=== PATIENT | female | born 1990 | race Caucasian/White ===

== ENCOUNTER 2021-01-06 17:18 | Emergency (ER) | payer MEDICAID ==
[~2021-01-06] VITALS: Ht 160 cm; Wt 100.0 kg
--- NOTE | 2021-01-06 18:04 | PHYS DOC ---
Past History Past Surgical History: No Surgical History, Appendectomy, Cholecystectomy (YVONNE RENAE APRN) Alcohol Use: None (YVONNE RENAE APRN) General Adult EDM: Chief Complaint: CONSTIPATION HPI: HPI: Patient is a 30-year-old female being seen for constipation. Patient reports her last bowel movement was 2 weeks ago. She is reporting left upper quadrant and left lower quadrant pain with abdominal distention. She rates this pain 10 out of 10. She has been taking MiraLAX, mag citrate, enemas for the last 4 days without previously a bowel movement. Patient is also reporting nausea and vomi ting. Patient reports that she went to a hospital in [place] yesterday for the same symptoms and was given Relistor, GlycoLax and senna she reports still not being able to have a bowel movement. Patient denies fevers, dysuria, frequency/urgency, blood in vomit. (YVONNE RENAE APRN) Review of Systems: Review of Systems: 14 body systems of the review of systems have been reviewed. See HPI for pertinent positive and negative responses, otherwise all other systems are negative, nonpertinent or noncontributory (YVONNE RENAE APRN) Allergies: Allergies: Allergies Coded Allergies Type Severity Reaction Last Updated Verified No Known Drug Allergies 01/06/21 No (YVONNE RENAE APRN) Physical Exam: PE: Constitutional: Well developed, well nourished, no acute distress, non-toxic appearance. [] HENT: Normocephalic, atraumatic Eyes: PERRL, conjunctiva normal, no discharge. [] Neck: Normal range of motion, no tenderness, supple, no stridor. [] Cardiovascular:Heart rate regular rhythm, no murmur [] Lungs & Thorax: Bilateral breath sounds clear to auscultation [] Abdomen: Bowel sounds normal, firm, distended, tenderness with palpation to left lower quadrant, no rebound tenderness, negative Rovsing sign, no masses, no pulsatile masses. [] Skin: Warm, dry, no erythema, no rash. [] Back: Normal range of motion Extremities: No tenderness, no cyanosis, no clubbing, ROM intact, no edema. [] Neurologic: Alert and oriented X 3, normal motor function, normal sensory function, no focal deficits noted. [] Psychologic: Affect normal, judgement normal, mood normal. [] (YVONNE RENAE APRN) Current Patient Data: Vital Signs: Vital Signs Date Time Temp Pulse Resp B/P (MAP) Pulse Ox O2 Delivery O2 Flow Rate FiO2 01/06/21 17:44 98.7 85 18 114/91 97 (YVONNE RENAE APRN) EKG: EKG: [] (YVONNE RENAE APRN) Radiology/Procedures: Radiology/Procedures: PROCEDURE: CT ABD PELV W/ IV CONTRST ONLY CT abdomen and pelvis with contrast PQRS statement: CT scans at this facility use dose reduction including either automated exposure control, iterative reconstructions, and /or weight based radiation dosing via mA and kV modification when appropriate to reduce radiation dose to as low as reasonably achievable. Contrast: 75 mL Omnipaque 300 intravenous contrast HISTORY: Abdominal pain, abdominal bloating, obstruction, constipation. Abdomen findings: Mild discoid atelectasis at the lung bases. Subcentimeter hypodense lesions of the liver too small to characterize, statistically most likely these are 2 small cysts or hemangiomas. Cholecystectomy. Pancreas, spleen, small accessory spleen, adrenal glands and kidneys are unremarkable. Appendectomy. No obstruction or inflammatory changes in GI tract. No abdominal fluid or adenopathy. Pelvis findings: Bladder, uterus, ovaries, rectum and bones are unremarkable. No pelvic fluid or adenopathy. IMPRESSION: No acute process. Appendectomy. There is a moderate volume of stool within the descending and rectosigmoid colon may indicate mild constipation. Electronically signed by: Alvarez Collins MD (01/06/2021 6:56 PM) [facility] [place] DICTATED AND SIGNED BY: ALVAREZ COLLINS MD DATE: 01/06/211850 CC: YVONNE RENAE APRN; PCP,NO ~MTH0 0[] (YVONNE RENAE APRN) Heart Score: C/O Chest Pain: No Risk Factors: Risk Factors: DM, Current or recent (<one month) smoker, HTN, HLP, family history of CAD, obesity. Risk Scores: Score 0 - 3: 2.5% MACE over next 6 weeks - Discharge Home Score 4 - 6: 20.3% MACE over next 6 weeks - Admit for Clinical Observation Score 7 - 10: 72.7% MACE over next 6 weeks - Early Invasive Strategies (YVONNE REANE APRN) Course & Med Decision Making: Course & Med Decision Making Pertinent Labs and Imaging studies reviewed. (See chart for details) Patient is a 30-year-old female being seen for constipation, abdominal pain, nausea/vomiting, abdominal distention. A CT scan was performed in the ER that showed mild constipation with no obstruction. Lab work unremarkable. Fleets enema ordered. Patient reports that she has a long drive home and would like to do the enema at home. I discussed with patient all findings and diagnostic testing as well as the need to follow-up with PCP for further evaluation and treatment or return to the ER if any new or worsening symptoms. Strict return precautions were also discussed at length. Patient voiced understanding and agreement with the plan. Patient is hemodynamically stable at the time of disposition. (YVONNE RENAE APRN) Course & Med Decision Making Did not see or evaluate patient. Agree with PAID SEARCH ANALYST's work-up and disposition per note. (OMAIRA ARSHAD MD) Dragon Disclaimer: Dragon Disclaimer: This electronic medical record was generated, in whole or in part, using a voice recognition dictation system. (YVONNE RENAE APRN) Departure Departure: Impression: Primary Impression: Constipation Qualified Codes: K59.00 - Constipation, unspecified Disposition: HOME / SELF CARE / HOMELESS Condition: GOOD Referrals: PCP,NO (PCP) Patient Instructions: Constipation, Adult Additional Instructions: You were seen in the ER today for constipation. Your blood work was unremarkable. Your CT scan showed mild constipation with no obstruction. As you requested, you were given a fleets enema to take home. Please use this as directed. Please take the medications that you were previously prescribed yes terday. Follow-up with your primary care provider tomorrow regarding your ER visit today. If you continue to have your symptoms you may need to have a GI consult. Please return to the ER if you develop severe abdominal pain, uncontrollable nausea or vomiting fevers, blood in your stool or vomit. EMERGENCY DEPARTMENT GENERAL DISCHARGE INSTRUCTIONS Thank you for coming to [facility] (ED) today and trusting us with you care. We trust that you had a positivie experience in our Emergency Department. If you wish to speak to the department management, you may call the director at [phone]. YOUR FOLLOW UP INSTRUCTIONS ARE FOLLOWS: 1. Do you have a private Doctor? If you do not have a private doctor, please ask for a resource list of physicians or clinics that may be able to assist you with follow up care. 2. The Emergency Physician has interpreted your x-rays. The X-Ray specialist will also review them. If there is a change in the findings, you will be notified in 48 hours when at all possible. 3. A lab test or culture has been done, your results will be reviewed and you will be notified if you need a change in treatment. ADDITIONAL INSTRUCTIONS AND INFORMATION: 1. Your care today has been supervised by a physician who is specially trained in emergency care. Many problems require more than one evaluation for a complete diagnosis and treatment. We recommend that you schedule your follow up appointment as recommended to ensure complete treatment of you illness or injury. If you are unable to obtain follow up care and continue to have a problem, or if your condition worsens, we recommend that you return to the ED. 2. We are not able to safely determine your condition over the phone nor are we able to give sound medical advice over the phone. For these safety reasons, if you call for medical advice we will ask you to come to the ED for further evaluation. 3. If you have any questions regarding these discharge instructions please call the ED at [phone]. SAFETY INFORMATION: In the interest of safety, wellness, and injury prevention; we encourage you to wear your sealbelt, if you smoke; quite smoking, and we encourage family to use a protective helmet for bicycling and other sporting events that present an increased risk for head injury. IF YOUR SYMPTOMS WORSEN OR NEW SYMPTOMS DEVELOP, OR YOU HAVE CONCERNS ABOUT YOUR CONDITION; OR IF YOUR CONDITION WORSENS WHILE YOU ARE WAITING FOR YOUR FOLLOW UP APPOINTMENT; EITHER CONTACT YOUR PRIMARY CARE DOCTOR, THE PHYSICIAN WHOSE NAME AND NUMBER YOU WERE GIVEN, OR RETURN TO THE ED IMMEDIATELY. YVONNE RENAE APRN Jan 06, 2021 18:04 OMAIRA ARSHAD MD Jan 06, 2021 20:21
[2021-01-06] MEDS ORDERED: IOHEXOL 300 MG/ML 75 ML VIAL. IV ONE (18:15)
[2021-01-06 18:52] LABS: BASO # 0.1 x10^3/uL (0.0-0.2); BASO % 1 % (0-3); EOS # 0.1 x10^3/uL (0.0-0.7); EOS % 2 % (0-3); HEMATOCRIT 32.4 % (36.0-47.0); HEMOGLOBIN 10.7 g/dL (12.0-15.5); LYMPH # 1.8 x10^3/uL (1.0-4.8); LYMPH % 30 % (24-48); MEAN CORPUSCULAR HEMOGLOBIN 26 pg (25-35); MEAN CORPUSCULAR HGB CONC 33 g/dL (31-37); MEAN CORPUSCULAR VOLUME 78 fL (79-100); MONO # 0.4 x10^3/uL (0.0-1.1); MONO % 7 % (0-9); NEUT # 3.6 x10^3uL (1.8-7.7); NEUT % 61 % (31-73); PLATELET COUNT 286 x10^3/uL (140-400); RED BLOOD COUNT 4.15 x10^6/uL (3.50-5.40); RED CELL DISTRIBUTION WIDTH 17.7 % (11.5-14.5)
[2021-01-06 18:58] LABS: CALCIUM 8.5 mg/dL (8.5-10.1); CREATININE 0.8 mg/dL (0.6-1.0); GFR 83.1; POTASSIUM 3.8 mmol/L (3.5-5.1)
--- NOTE | 2021-01-06 18:59 | RAD ---
CT abdomen and pelvis with contrast PQRS statement: CT scans at this facility use dose reduction including either automated exposure cont rol, iterative reconstructions, and /or weight based radiation dosing via mA and kV modification when appropriate to reduce radiation dose to as low as reasonably achievable. Contrast: 75 mL Omnipaque 300 intravenous contrast HISTORY: Abdominal pain, abdominal bloating, obstruction, constipation. Abdomen findings: Mild discoid atelectasis at the lung bases. Subcentimeter hypodense lesions of the liver too small to characterize, statistically most likely these are 2 small cysts or hemangiomas. Ch olecystectomy. Pancreas, spleen, small accessory spleen, adrenal glands and kidneys are unremarkable. Appendectomy. No obstruction or inflammatory changes in GI tract. No abdominal fluid or adenopathy. Pelvis findings: Bladder, uterus, ovaries, rectum and bones are unremarkable. No pelvic fluid or darlene opathy. IMPRESSION: No acute process. Appendectomy. There is a moderate volume of stool within the descending and rectosigmoid colon may indicate mild constipation. Electronically signed by: Alvarez Eli MD (01/06/2021 6:56 PM) [facility]
[2021-01-06 19:05] LABS: ALBUMIN 3.5 g/dL (3.4-5.0); ALBUMIN/GLOBULIN RATIO 1.2 (1.0-1.7); TOTAL BILIRUBIN 0.2 mg/dL (0.2-1.0); TOTAL PROTEIN 6.4 g/dL (6.4-8.2)
[2021-01-06] MEDS ORDERED: SODIUM PHOSPHATES 19/7GM 133 ML ENEMA. PR ONE (19:15)
[2021-01-06 19:23] VITALS: BP 110/88
== END 2021-01-06 19:29 | disposition home or self-care (01) ==
LOC: ER 17:18
DX: K59.00 Constipation, unspecified (principal); Z90.49 Acquired absence of other specified parts of digestive tract
CPT/HCPCS: 36415; 74177; 80053; 85025; 99285; Q9967